=== PATIENT | male | born 1960 | race American Indian/Alaskan Native ===

== ENCOUNTER 2016-11-14 09:12 | Emergency (ER) | payer MEDICAID ==
--- NOTE | 2016-11-14 10:07 | XRay Report ---
LEFT ANKLE RADIOGRAPHS INDICATION: Left ankle injury, pain. COMPARISON: None similar. FINDINGS: AP and lateral left ankle radiographs demonstrate distal fibular fracture with cortical offset of approximately 3 mm, extending to distal tibiofibular articulation. Subtle medial subluxation of the tibia relative to the talus not entirely excluded. Malleoli and talar dome grossly intact. Diffuse overlying soft tissue swelling. Demineralized bones. Mild degenerative calcaneal and midfoot spurring also seen. CONCLUSION: Left distal fibular mildly displaced acute fracture suspected involving the distal tibiofibular articulation with soft tissue swelling and few other findings, including degenerative changes, as above. Please correlate. Thank you for the opportunity to participate in this patient's care.
[2016-11-14] MEDS ORDERED: DILAUDID IV ONE (10:43)
[2016-11-14] MEDS ORDERED: APRESOLINE IV ONE (10:43)
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
[2016-11-14 11:24] LABS: Anion Gap 16 mmol/L; Blood Urea Nitrogen 10 mg/dL (9-20); Carbon Dioxide 28 mmol/L (22-30); Chloride 97.7 mmol/L (98-107); Glucose 111 mg/dL (75-100); Potassium 4.1 mmol/L (3.6-5.0); Sodium 138 mmol/L (137-145)
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
[2016-11-14 14:32] VITALS: BP 155/76
== END 2016-11-14 14:32 | disposition home or self-care (01) ==
LOC: ED 09:12
DX: S82.402A Unspecified fracture of shaft of left fibula, initial encounter for closed fracture (principal); Y04.8XXA Assault by other bodily force, initial encounter; Y93.89 Activity, other specified; Y92.89 Other specified places as the place of occurrence of the external cause; Y99.8 Other external cause status; I10 Essential (primary) hypertension; F17.200 Nicotine dependence, unspecified, uncomplicated
CPT/HCPCS: 29515; 36415; 70450; 73560; 73590; 73600; 80048; 82550; 96374; 96375; 99285; J0360; J1170

== ENCOUNTER 2018-04-22 16:31 | Emergency (ER) | payer MEDICARE | END 2018-04-22 16:32 | disposition left against medical advice (07) | LOC: ED 16:31 | DX: R03.0 Elevated blood-pressure reading, without diagnosis of hypertension (principal); Z53.21 Procedure and treatment not carried out due to patient leaving prior to being seen by health care provider ==

== ENCOUNTER 2018-04-24 00:01 | Inpatient (IN) | payer MEDICARE ==
[2018-04-24 01:56] LABS: Basophils % (Auto) 0.5 % (0.0-1.8); Eosinophils % (Auto) 0.8 % (0.0-4.3); Hematocrit 50.4 % (35.5-45.6); Hemoglobin 17.7 gm/dl (11.8-15.2); Lymphocytes # (Auto) 1.5 K/mm3 (1.2-5.4); Lymphocytes % (Auto) 31.8 % (13.4-35.0); Mean Corpuscular HGB Conc 35 % (32-34); Mean Corpuscular Hemoglobin 34 pg (28-32); Mean Corpuscular Volume 97 fl (84-94); Monocytes # (Auto) 0.6 K/mm3 (0.0-0.8); Monocytes % (Auto) 11.6 % (0.0-7.3); Platelet Count 192 K/mm3 (140-440); Red Blood Count 5.19 M/mm3 (3.65-5.03)
[2018-04-24 02:09] LABS: INR 0.95 (0.87-1.13)
[2018-04-24 02:10] LABS: Partial Thromboplastin Time 30.8 Sec. (24.2-36.6)
[2018-04-24 02:15] LABS: Alanine Aminotransferase 46 units/L (7-56); Albumin 4.6 g/dL (3.9-5); BUN/Creatinine Ratio 10; Blood Urea Nitrogen 8 mg/dL (9-20); Calcium 9.1 mg/dL (8.4-10.2); Hemolysis Index 2
--- NOTE | 2018-04-24 02:33 | XRay Report ---
FINAL REPORT PROCEDURE: XR CHEST 1V AP TECHNIQUE: Chest radiograph anteroposterior view. CPT 08392 HISTORY: hypertension COMPARISON: No prior studies are available for comparison. FINDINGS: Heart: Normal. Mediastinum/Vessels: Normal. Lungs/Pleural space: Normal. Bony thorax: No acute osseous abnormality. Life support devices: None. IMPRESSION: No acute cardiopulmonary abnormality.
--- NOTE | 2018-04-24 02:35 | Cat Scan Report ---
FINAL REPORT PROCEDURE: CT HEAD/BRAIN WO CON TECHNIQUE: Computerized tomography of the head was performed without contrast material. HISTORY: Alterted Mental Status COMPARISON: No prior studies are available for comparison. FINDINGS: Skull and scalp: Normal. Paranasal sinuses: Normal. Ventricles and subarachnoid spaces: There is central and cortical atrophy somewhat advanced for the patient's age.. Cerebrum: No evidence of hemorrhage, acute infarction or mass. 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 There is chronic periventricular deep white matter ischemic gliosis. Cerebellum and brainstem: No evidence of hemorrhage, acute infarction or mass. Vasculature: Normal. Comments: None. IMPRESSION: There are chronic involutional and ischemic changes. There is no hemorrhage, edema, mass, mass effect or midline shift.
--- NOTE | 2018-04-24 03:50 | Emergency Department Report ---
ED Altered Mental Status HPI - General Chief Complaint: Syncope Stated Complaint: POSSIBLE SYNCOPE Time Seen by Provider: 04/24/18 00:25 Source: patient, family, EMS Mode of arrival: Stretcher Limitations: No Limitations - History of Present Illness Initial Comments: Family reports that at approximately 1800 patient had a sudden onset episode of altered mental status associated with decreased responsiveness, bilateral UE shaking, and eyes rolling in the back of the head lasting approximately 1-2 minutes. Reports no symptoms in the ER. Patient does not remember episode. Patient denies hx seizure. Denies trauma. Reports alcohol today. Denies illicit drugs. reports patient was started on anti-hypertensives approximately 3 days ago by pain management - HCTZ, norvasc, carvedilol for BP management. Patient reports that he has been compliant with medications. MD Complaint: altered mental status, decreased responsiveness -: Last night Severity: moderate Consistency of Symptoms: waxing and waning (symptoms resolved after approximately 1-2 minutes at home) Context: change in medication, other (reports alcohol use) Associated Symptoms: diaphoresis, seizure. denies: chest pain, cough, fever/ chills, headaches, loss of appetite, nausea/vomiting, rash, shortness of breath , weakness, foul smelling urine, difficulty walking, diarrhea - Related Data Previous Rx's Medication Instructions Recorded Last Taken Type ALBUTEROL Inhaler [ProAir HFA 1 puff IH Q4H PRN #1 inha 10/15/13 Unknown Rx Inhaler] Omeprazole Magnesium [Prilosec Otc] 20 mg PO QDAY #30 tablet. 10/15/13 Unknown Rx HYDROcodone/APAP 5-325 [[place] 1 each PO Q6HR PRN #12 tablet 01/29/16 Unknown Rx 5/325] Ketorolac [Toradol] 10 mg PO Q6H PRN #20 tablet 11/14/16 Unknown Rx Lisinopril [Zestril TAB] 10 mg PO QDAY #30 tablet 11/14/16 Unknown Rx hydrALAZINE [Apresoline TAB] 25 mg PO Q8H #90 tab 11/14/16 Unknown Rx oxyCODONE [Roxicodone] 5 mg PO Q6HR PRN #15 tablet 11/14/16 Unknown Rx Allergies Allergy/AdvReac Type Severity Reaction Status Date / Time No Known Allergies Allergy Verified 10/15/13 00:19 ED Review of Systems ROS: Stated complaint: POSSIBLE SYNCOPE Other details as noted in HPI Other: GENERAL: No weight change, fatigue, weakness, fever, chills, or night sweats SKIN: No changes in skin or hair, no itching, no rashes, no jaundice HEAD: No trauma, headache, or visual changes EYES: No blurriness, tearing, itching, acute visual loss, conjunctival discoloration, or scleral icterus EARS: No hearing loss, tinnitus, vertigo, or earache NOSE: No rhinorrhea, stuffiness, sneezing, itching, or epistaxis MOUTH: No bleeding gums, hoarseness, sore throat, or swelling CARDIAC: No new murmur, chest pain, palpitations, dyspnea on exertion, orthopnea , PND, or edema RESPIRATORY: No shortness of breath, wheeze, cough, sputum production, hemoptysis, pneumonia, asthma, bronchitis, or emphysema GI: No change in appetite, nausea, vomiting, dysphagia, change in bowel frequency, diarrhea, constipation, bleeding, hematemesis, melena, hematochezia, or abdominal pain URINARY: No frequency, urgency, polyuria, dysuria, hematuria, or incontinence MUSCULOSKELETAL: No muscle weakness, joint stiffness, decrease in range of motion, redness, swelling NEUROLOGIC: Altered mental status. No loss of sensation, numbness, tingling, tremors, weakness, paralysis, seizures HEMATOLOGIC: No anemia, easy bruising, bleeding, petechiae, or purpura ENDOCRINE: No hot or cold intolerance, sweating, polyuria, polydipsia or, polyphagia no thyroid problems ED Past Medical Hx - Past Medical History Previous Medical History?: Yes Hx Hypertension: Yes (no meds) Hx Congestive Heart Failure: No Hx Diabetes: No Hx Asthma: No Hx COPD: No - Surgical History Past Surgical History?: No - Social History Smoking Status: Current Every Day Smoker Substance Use Type: Alcohol - Medications Home Medications: Home Medications Medication Instructions Recorded Confirmed Last Taken Type ALBUTEROL Inhaler [ProAir HFA 1 puff IH Q4H PRN #1 inha 10/15/13 03/14/14 Unknown Rx Inhaler] Omeprazole Magnesium [Prilosec Otc] 20 mg PO QDAY #30 tablet. 10/15/13 Unknown Rx HYDROcodone/APAP 5-325 [[place] 1 each PO Q6HR PRN #12 tablet 01/29/16 Unknown Rx 5/325] Ketorolac [Toradol] 10 mg PO Q6H PRN #20 tablet 11/14/16 Unknown Rx Lisinopril [Zestril TAB] 10 mg PO QDAY #30 tablet 11/14/16 Unknown Rx hydrALAZINE [Apresoline TAB] 25 mg PO Q8H #90 tab 11/14/16 Unknown Rx oxyCODONE [Roxicodone] 5 mg PO Q6HR PRN #15 tablet 11/14/16 Unknown Rx ED Physical Exam - General Limitations: No Limitations - Other Other exam information: GENERAL: Patient in no acute distress HEAD: Normocephalic, atraumatic EYES: PERRLA, EOM intact, no scleral icterus, visual marroquin and acuity wnl NOSE: No tenderness, discharge, sinus tenderness MOUTH: No erythema, bleeding, exudate HEART: Regular rate and rhythm, no murmur, S1-S2 are auscultated, pulses are symmetric LUNGS: bilateral breath sounds. No wheezing, rales, rhonchi ABDOMEN: Normal bowel sounds, no tenderness, no rebound, no guarding, no masses , no CVA tenderness MUSCULOSKELETAL: Normal joint range of motion, no redness, no swelling, no tenderness NEUROLOGIC: NIHSS on 0, GCS 15, Alert and Oriented x3, Cranial nerves intact, normal sensation, normal strength, normal gait, no cerebellar deficit PSYCHIATRIC: No homicidal or suicidal ideation, no anxiety, no depression, no hallucinations SKIN: Skin is warm and dry, no wounds, no rashes - Assessment Assessment Interval: Baseline - Level of Consciousness 1a. Level of Consciousness: alert - LOC Questions 1b. LOC Questions: answers correctly - LOC Command 1c. LOC Commands: performs tasks correctly - Best Gaze 2. Best Gaze: normal - Visual 3. Visual: no visual loss - Facial Palsy 4. Facial Palsy: normal symmetrical movement - Motor Arm 5b. Motor Arm Right: no drift 5a. Motor Arm Left: no drift - Motor Leg 6a. Motor Leg Left: no drift 6b. Motor Leg Right: no drift - Limb Ataxia 7. Limb Ataxia: absent - Sensory 8. Sensory: normal - Best Language 9. Best Language: no aphasia - Dysarthria 10. Dysarthria: normal - Extinction and Inattention 11. Extinction/Inattention: no abnormality - Scoring Total Score: 0 Stroke Severity: No Stroke Symptoms ED Course Vital Signs 04/24/18 00:09 Temperature 98.1 F Pulse Rate 77 Respiratory 18 Rate Blood Pressure 131/87 O2 Sat by Pulse 100 Oximetry - Lab Data Result diagrams: 04/24/18 01:41 04/24/18 01:41 Lab Results 04/24/18 04/24/18 04/24/18 Range/Units 01:41 01:41 01:41 WBC 4.8 (4.5-11.0) K/mm3 RBC 5.19 H (3.65-5.03) M/mm3 Hgb 17.7 H (11.8-15.2) gm/dl Hct 50.4 H (35.5-45.6) % MCV 97 H (84-94) fl MCH 34 H (28-32) pg MCHC 35 H (32-34) % RDW 13.0 L (13.2-15.2) % Plt Count 192 (140-440) K/mm3 Lymph % (Auto) 31.8 (13.4-35.0) % [place] % (Auto) 11.6 H (0.0-7.3) % Eos % (Auto) 0.8 (0.0-4.3) % Baso % (Auto) 0.5 (0.0-1.8) % Lymph # 1.5 (1.2-5.4) K/mm3 [place] # 0.6 (0.0-0.8) K/mm3 Eos # 0.0 (0.0-0.4) K/mm3 Baso # 0.0 (0.0-0.1) K/mm3 Seg Neutrophils % 55.3 (40.0-70.0) % Seg Neutrophils # 2.7 (1.8-7.7) K/mm3 PT (12.2-14.9) Sec. INR (0.87-1.13) APTT (24.2-36.6) Sec. Sodium (137-145) mmol/L Potassium (3.6-5.0) mmol/L Chloride (98-107) mmol/L Carbon Dioxide (22-30) mmol/L Anion Gap mmol/L BUN (9-20) mg/dL Creatinine (0.8-1.5) mg/dL Estimated GFR ml/min BUN/Creatinine Ratio % Glucose (75-100) mg/dL Calcium (8.4-10.2) mg/dL Total Bilirubin (0.1-1.2) mg/dL AST (5-40) units/L ALT (7-56) units/L Alkaline Phosphatase (35-129) units/L Total Creatine Kinase (55-170) units/L Troponin T < 0.010 (0.00-0.029) ng/mL NT-Pro-B Natriuret Pep (0-900) pg/mL Total Protein (6.3-8.2) g/dL Albumin (3.9-5) g/dL Albumin/Globulin Ratio % Plasma/Serum Alcohol < 0.01 (0-0.07) % 04/24/18 04/24/18 Range/Units 01:41 01:41 WBC (4.5-11.0) K/mm3 RBC (3.65-5.03) M/mm3 Hgb (11.8-15.2) gm/dl Hct (35.5-45.6) % MCV (84-94) fl MCH (28-32) pg MCHC (32-34) % RDW (13.2-15.2) % Plt Count (140-440) K/mm3 Lymph % (Auto) (13.4-35.0) % [place] % (Auto) (0.0-7.3) % Eos % (Auto) (0.0-4.3) % Baso % (Auto) (0.0-1.8) % Lymph # (1.2-5.4) K/mm3 [place] # (0.0-0.8) K/mm3 Eos # (0.0-0.4) K/mm3 Baso # (0.0-0.1) K/mm3 Seg Neutrophils % (40.0-70.0) % Seg Neutrophils # (1.8-7.7) K/mm3 PT 13.2 (12.2-14.9) Sec. INR 0.95 (0.87-1.13) APTT 30.8 (24.2-36.6) Sec. Sodium 120 L (137-145) mmol/L Potassium 2.8 L* (3.6-5.0) mmol/L Chloride 78.7 L (98-107) mmol/L Carbon Dioxide 28 (22-30) mmol/L Anion Gap 16 mmol/L BUN 8 L (9-20) mg/dL Creatinine 0.8 (0.8-1.5) mg/dL Estimated GFR > 60 ml/min BUN/Creatinine Ratio 10 % Glucose 119 H (75-100) mg/dL Calcium 9.1 (8.4-10.2) mg/dL Total Bilirubin 1.60 H (0.1-1.2) mg/dL AST 57 H (5-40) units/L ALT 46 (7-56) units/L Alkaline Phosphatase 58 (35-129) units/L Total Creatine Kinase 770 H (55-170) units/L Troponin T (0.00-0.029) ng/mL NT-Pro-B Natriuret Pep 88.31 (0-900) pg/mL Total Protein 7.6 (6.3-8.2) g/dL Albumin 4.6 (3.9-5) g/dL Albumin/Globulin Ratio 1.5 % Plasma/Serum Alcohol (0-0.07) % Interpretation: no acute changes - Radiology Data Radiology results: report reviewed - Medical Decision Making Patient comfortable. Updated with results. Plan admit for further evaluation. Hospitalists accepts admission. Critical care attestation.: If time is entered above; I have spent that time in minutes in the direct care of this critically ill patient, excluding procedure time. ED Disposition Clinical Impression: Hyponatremia, Hypokalemia Altered mental status Qualifiers: Altered mental status type: unspecified Qualified Code(s): R41.82 - Altered mental status, unspecified Disposition: DC-09 OP ADMIT IP TO THIS HOSP Is pt being admited?: Yes Condition: Stable Referrals: JACINDA LIZARRAGA MD [Primary Care Provider] - 3-5 Days
[2018-04-24] MEDS: NS/KCL 20MEQ 20 MEQ/1,000 ML BAG IV SCH (05:09)
[2018-04-24] MEDS ORDERED: K-DUR PO ONE (05:35)
[2018-04-24] MEDS ORDERED: ATIVAN IV PRN (05:38)
[2018-04-24] MEDS ORDERED: VITAMIN B-1 100 MG, FOLVITE 1 MG, INFUVITE 10 ML in NACL 0.9% 1000 ML 1,000 ML IV ONE (05:38)
[2018-04-24] MEDS ORDERED: ZOFRAN IV PRN (05:39)
[2018-04-24] MEDS ORDERED: TYLENOL PO PRN (05:41)
[2018-04-24] MEDS ORDERED: PROAIR IH PRN (05:50)
[2018-04-24] MEDS ORDERED: ROXICODONE PO PRN (05:50)
[2018-04-24] MEDS ORDERED: NORCO 5/325 PO PRN ×2 (05:50→12:00)
[2018-04-24] MEDS ORDERED: TORADOL PO PRN (05:50)
[2018-04-24] MEDS ORDERED: PROVENTIL IH PRN (05:59)
[2018-04-24 06:22] LABS: Bilirubin,Urine NEG (Negative); Blood,Urine NEG (Negative); Color,Urine Colorless (Yellow); Protein,Urine <15 mg/dL mg/dL (Negative); Urobilinogen,Urine < 2.0 mg/dL (<2.0); WBC,Urine < 1.0 /HPF (0.0-6.0)
[2018-04-24 06:25] LABS: RBC,Urine < 1.0 /HPF (0.0-6.0)
[2018-04-24] MEDS: APRESOLINE PO SCH ×2 (06:28→15:44)
[2018-04-24 06:30] LABS: Amphetamine Screen,Urine PRESUMPTIVE NEGATIVE; Benzodiazepines Screen,Urine PRESUMPTIVE NEGATIVE; Cocaine Screen,Urine PRESUMPTIVE NEGATIVE; Methadone Screen,Urine PRESUMPTIVE NEGATIVE; Opiate Screen,Urine PRESUMPTIVE NEGATIVE
[2018-04-24 06:45] LABS: Cannabinoid Screen,Urine PRESUMPTIVE POSITIVE
--- NOTE | 2018-04-24 06:50 | History and Physical Report ---
CHIEF COMPLAINT: Syncopal attack. Other complaint include change in mental status. HISTORY OF PRESENTING ILLNESS: The patient is a 57-year-old male who was noted to have altered mental status at home associated with decreased responsiveness. The patient was noted also by family to have some jerky movement and shaking with eyes rolling backwards, the incident lasted for about 1-2 minute and the patient was then reported as possibly having a syncopal attack. The patient's symptoms did not manifest while in the Emergency Room. The patient does not remember having these symptoms. The patient denies history of seizure and denies history of trauma and admitted to drinking alcohol on a regular basis with the last drink being yesterday 04/23/2018. There is no history of chest pain, no history of shortness of breath. No history of nausea and vomiting. PAST MEDICAL HISTORY: Pertinent for hypertension. The patient is not on any medication. Also the patient has past history of alcohol abuse. PAST SURGICAL HISTORY: Unremarkable. FAMILY HISTORY: Family history is noncontributory. SOCIAL HISTORY: The patient drinks alcohol regularly, smokes cigarettes and denies use of illicit drug. MEDICATIONS: The patient is on albuterol inhaler 1 puff every 4 hours as needed for shortness of breath, omeprazole 20 mg by mouth daily, [place] 5/325 mg 1 by mouth every 6 hours as needed for pain. Also the patient is on Toradol 10 mg by mouth every 6 hours as needed for pain, and lisinopril 10 mg by mouth daily as well as hydralazine 25 mg by mouth every 8 hours and Roxicodone 5 mg by mouth every 6 hours as needed for pain. ALLERGIES: There are no known drug allergies. REVIEW OF SYSTEMS: CONSTITUTIONAL: There is no fever, no chills, no diaphoresis. HEENT: There is no headache or sore throat. CARDIOVASCULAR SYSTEM: There is no chest pain or orthopnea. RESPIRATORY SYSTEM: There is no shortness of breath or cough. GASTROINTESTINAL SYSTEM: There is no nausea, no vomiting, no abdominal pain, diarrhea or constipation. NEUROLOGICAL SYSTEM: Change in mental status noted. Shaking and jerky movement of the body with eyes rolling back noted. MUSCULOSKELETAL SYSTEM: There is no joint pain or swelling. DERMATOLOGICAL SYSTEM: There is no skin rash or itching. GENITOURINARY SYSTEM: There is no dysuria, hematuria or flank pain. Rest of system review is normal. PHYSICAL EXAMINATION: GENERAL: At the time of exam, the patient was found to be alert, oriented x 3 and not in acute distress. VITAL SIGNS: That was first recorded when the patient came to the Emergency Room shows temperature of 98.1 degrees Fahrenheit, pulse 77, respiration 18, blood pressure 131/87, O2 sat of 100% on room air. HEENT: Shows pupils to be equal, round, reactive to light and accommodating. Extraocular muscles are intact. NECK: Neck is supple with no JVD or carotid bruits. CARDIOVASCULAR SYSTEM: Shows normal first and second heart sounds with no gallops or murmur. RESPIRATORY SYSTEM: Show good air entry on both sides of the lungs with no abnormal breath sounds. GASTROINTESTINAL SYSTEM: Show abdomen to be full, soft, nontender with no organomegaly or rigidity. NEUROLOGICAL: Shows no focal deficit. MUSCULOSKELETAL SYSTEM: Show no joint swelling or tenderness. DERMATOLOGICAL SYSTEM: Show no skin rash. GENITOURINARY SYSTEM: Showing no costovertebral angle tenderness. PERTINENT LABORATORY AND IMAGING STUDIES: The patient has CBC done with normal white count, elevated hemoglobin of 17.7 with elevated hematocrit of 50.4 and high MCV of 97. CBC differential shows elevated monocyte count of 11.6% with unremarkable coagulation studies. The patient's chemistry showed low sodium of 120 with low potassium of 2.8 and low chloride of 78.7 with the patient's other chemistry showing elevated bilirubin of 1.6 with high AST of 57 and normal ALT of 46 consistent with the patient's alcohol abuse. The patient's total CPK is high with a value of 770 and troponin level is unremarkable. The patient's alcohol level is less than 0.01. The patient has CT of the head without contrast done and this shows chronic involutional and ischemic changes with no hemorrhage, edema, mass effect or midline shift seen. The patient also has chest x-ray done that shows no acute cardiopulmonary lesion. DIAGNOSES: 1. Altered mental status. 2. Electrolyte imbalance with hyponatremia and hypokalemia. PLAN OF ACTION: 1. The patient will be admitted to telemetry. 2. The patient will be on p.o. potassium chloride 40 mEq to be given once. 3. The patient will be on IV banana bag to be given one time at the rate of 250 mL an hour and the patient will continue IV normal saline with 20 mEq of potassium in 1 liter of normal saline started in the Emergency Room. 4. The patient will be on IV Zofran 4 mg every 8 hours for nausea and vomiting. 5. The patient will be on Tylenol 650 mg by mouth every 4 hours for fever and headache. Heparin 5000 units subQ q. 12 hours for DVT prophylaxis. 6. The patient will be on IV Ativan 1 mg every 4 hours as needed for seizure activity or agitation from alcohol withdrawal. 7. The patient will be on his home medications as shown in the medication reconciliation section. 8. The patient's diet will be 2 g sodium diet. JOB# [id number] OCN/NTS
[2018-04-24 07:28] LABS: BUN/Creatinine Ratio 14; Blood Urea Nitrogen 7 mg/dL (9-20); Calcium 8.7 mg/dL (8.4-10.2); Hemolysis Index 297
[2018-04-24] MEDS ORDERED: NON-FORMULARY (Omeprazole Magnesium [Prilosec Otc] 20 MG) PO SCH (10:00)
[2018-04-24] MEDS: HEPARIN SUB-Q SCH (10:42)
[2018-04-24] MEDS: ZESTRIL PO SCH (10:42)
[2018-04-24] MEDS: PROTONIX PO SCH (10:42)
--- NOTE | 2018-04-24 14:36 | Progress Note ---
Assessment and Plan - Encephalopathy - Electrolytes imbalance with hyponatremia and hypokalemia - Alcohol use disorder - Abnormal liver enzymes - Moderately use disorder Plan CT scan of the head was unremarkable. Replete electrolyte imbalalce Subjective Date of service: 04/24/18 Principal diagnosis: metabolic encephalopathy from alcohol ingestion Interval history: Patient seen and examined Objective - Exam Narrative Exam: Constitutional: Well-nourished well-developed. In no distress Head: Normocephalic atraumatic Eyes: Pupils are equal round and reactive to light Nose: No enlarged turbinates, no septal deviation. Mouth: Moist mucous membranes. Neck: Supple no thyromegaly. No bruit. No JVD Heart: Regular rate and rhythm, S1-S2 abnormal. No rubs murmurs or gallop Lungs: Clear to auscultation bilaterally no rales or rhonchi Abdomen: Soft, nontender. Bowel sound are present. Extremities: No edema no cyanosis and no clubbing. Neuro: Alert oriented Oriented x3. No focal sensory or motor deficit. Skin: No rashes no hyperemic spots Psychiatry: Euthymic. Calm. - Constitutional Vitals: Vital Signs - 12hr 04/24/18 04/24/18 04/24/18 03:51 04:01 04:15 Temperature Pulse Rate 75 75 Respiratory 17 18 Rate Blood Pressure 142/87 142/87 142/87 Blood Pressure [Right] O2 Sat by Pulse 98 94 95 Oximetry 04/24/18 04/24/18 04/24/18 04:31 04:45 05:01 Temperature Pulse Rate 79 77 76 Respiratory 20 18 18 Rate Blood Pressure 142/87 142/87 142/87 Blood Pressure [Right] O2 Sat by Pulse Oximetry 04/24/18 04/24/18 04/24/18 05:04 05:11 06:12 Temperature Pulse Rate 98 H 74 Respiratory 20 25 H Rate Blood Pressure 142/87 Blood Pressure [Right] O2 Sat by Pulse 100 Oximetry 04/24/18 04/24/18 04/24/18 06:28 06:35 07:27 Temperature 98.0 F Pulse Rate 90 72 80 Respiratory 20 20 Rate Blood Pressure 138/74 141/92 Blood Pressure 142/87 [Right] O2 Sat by Pulse 98 95 Oximetry 04/24/18 12:39 Temperature 99.0 F Pulse Rate 86 Respiratory 1 L Rate Blood Pressure 137/90 Blood Pressure [Right] O2 Sat by Pulse 97 Oximetry - Labs CBC & Chem 7: 04/24/18 01:41 04/24/18 06:26 Labs: Abnormal lab results 04/24/18 04/24/18 04/24/18 Range/Units 01:41 01:41 05:32 RBC 5.19 H (3.65-5.03) M/mm3 Hgb 17.7 H (11.8-15.2) gm/dl Hct 50.4 H (35.5-45.6) % MCV 97 H (84-94) fl MCH 34 H (28-32) pg MCHC 35 H (32-34) % RDW 13.0 L (13.2-15.2) % [place] % (Auto) 11.6 H (0.0-7.3) % Sodium 120 L (137-145) mmol/L Potassium 2.8 L* (3.6-5.0) mmol/L Chloride 78.7 L (98-107) mmol/L BUN 8 L (9-20) mg/dL Creatinine (0.8-1.5) mg/dL Glucose 119 H (75-100) mg/dL Total Bilirubin 1.60 H (0.1-1.2) mg/dL AST 57 H (5-40) units/L Total Creatine Kinase 770 H (55-170) units/L Ur Specific [place] 1.001 L (1.003-1.030) 04/24/18 Range/Units 06:26 RBC (3.65-5.03) M/mm3 Hgb (11.8-15.2) gm/dl Hct (35.5-45.6) % MCV (84-94) fl MCH (28-32) pg MCHC (32-34) % RDW (13.2-15.2) % [place] % (Auto) (0.0-7.3) % Sodium 129 L D (137-145) mmol/L Potassium (3.6-5.0) mmol/L Chloride 88.0 L (98-107) mmol/L BUN 7 L (9-20) mg/dL Creatinine 0.5 L (0.8-1.5) mg/dL Glucose 111 H (75-100) mg/dL Total Bilirubin (0.1-1.2) mg/dL AST (5-40) units/L Total Creatine Kinase (55-170) units/L Ur Specific [place] (1.003-1.030)
[2018-04-25] MEDS: APRESOLINE PO SCH ×6 (00:33→22:26)
[2018-04-25] MEDS: HEPARIN SUB-Q SCH ×3 (00:35→22:25)
[2018-04-25] MEDS: PROTONIX PO SCH (10:16)
[2018-04-25] MEDS: ZESTRIL PO SCH ×3 (10:17→22:24)
[2018-04-25] MEDS: NS/KCL 20MEQ 20 MEQ/1,000 ML BAG IV SCH ×2 (10:31→22:27)
[2018-04-25] MEDS ORDERED: APRESOLINE IV PRN (13:13)
--- NOTE | 2018-04-25 13:33 | Progress Note ---
Assessment and Plan - Encephalopathy - Electrolytes imbalance with hyponatremia and hypokalemia - Alcohol use disorder - Abnormal liver enzymes - Hypertension - Moderately use disorder Plan CT scan of the head was unremarkable. Replete electrolyte imbalalce Optimize blood pressure control DVT prophylaxis with Lovenox Subjective Date of service: 04/25/18 Principal diagnosis: metabolic encephalopathy from alcohol ingestion Interval history: Patient seen and examined denies any chest pain or shortness of breath. No headache. Objective - Exam Narrative Exam: Constitutional: Well-nourished well-developed.In no distress Head: Normocephalic atraumatic Eyes: Pupils are equal round and reactive to light Nose: No enlarged turbinates, no septal deviation. Mouth: Moist mucous membranes. Neck: Supple no thyromegaly. No bruit. No JVD Heart: Regular rate and rhythm, S1-S2 abnormal. No rubs murmurs or gallop Lungs: Clear to auscultation bilaterally no rales or rhonchi Abdomen: Soft, nontender. Bowel sound are present. Extremities: No edema no cyanosis and no clubbing. Neuro: Alert oriented Oriented x3. No focal sensory or motor deficit. Skin: No rashes no hyperemic spots Psychiatry: Euthymic. Calm. - Constitutional Vitals: Vital Signs - 12hr 04/25/18 04/25/18 04/25/18 02:03 07:10 07:13 Temperature 98.5 F Pulse Rate 82 82 82 Respiratory 18 Rate Blood Pressure 142/87 Blood Pressure 142/87 [Right] O2 Sat by Pulse 96 Oximetry 04/25/18 08:36 Temperature 99.0 F Pulse Rate 78 Respiratory 20 Rate Blood Pressure 144/87 Blood Pressure [Right] O2 Sat by Pulse 96 Oximetry - Labs CBC & Chem 7: 04/24/18 01:41 04/24/18 06:26
[2018-04-25 15:46] LABS: BUN/Creatinine Ratio 9; Blood Urea Nitrogen 8 mg/dL (9-20); Calcium 8.9 mg/dL (8.4-10.2); Hemolysis Index 1
[2018-04-25] MEDS: NORVASC PO SCH (17:59)
[2018-04-25] MEDS: CATAPRES PO SCH ×2 (18:00→22:25)
[2018-04-25] MEDS: NORMODYNE PO SCH ×2 (20:23→22:25)
[2018-04-26] MEDS: CATAPRES PO SCH ×2 (05:26→14:55)
[2018-04-26] MEDS: APRESOLINE PO SCH ×2 (05:27→14:55)
[2018-04-26 05:39] LABS: Hematocrit 45.4 % (35.5-45.6); Hemoglobin 15.3 gm/dl (11.8-15.2); Mean Corpuscular HGB Conc 34 % (32-34); Mean Corpuscular Hemoglobin 33 pg (28-32); Mean Corpuscular Volume 99 fl (84-94); Platelet Count 152 K/mm3 (140-440); Red Blood Count 4.58 M/mm3 (3.65-5.03); Red Cell Distribution Width 13.5 % (13.2-15.2)
[2018-04-26 06:05] LABS: Alanine Aminotransferase 54 units/L (7-56); Albumin 4.1 g/dL (3.9-5); BUN/Creatinine Ratio 8; Blood Urea Nitrogen 6 mg/dL (9-20); Hemolysis Index 2
[2018-04-26 06:34] LABS: Basophils % (Manual) 0 % (0.0-1.8); Platelet Estimate Consistent w Auto; Total Cells Counted 100
[2018-04-26] MEDS: NORVASC PO SCH (10:47)
[2018-04-26] MEDS: NORMODYNE PO SCH (10:47)
[2018-04-26] MEDS: HEPARIN SUB-Q SCH (10:47)
[2018-04-26] MEDS: PROTONIX PO SCH (10:48)
[2018-04-26] MEDS: ZESTRIL PO SCH (10:48)
--- NOTE | 2018-04-26 13:45 | Progress Note ---
Subjective Date of service: 04/26/18 Principal diagnosis: metabolic encephalopathy from alcohol ingestion Objective - Constitutional Vitals: Vital Signs - 12hr 04/26/18 04/26/18 04/26/18 05:01 05:02 08:27 Temperature 98.2 F Pulse Rate 68 71 Respiratory 18 Rate Blood Pressure 184/102 173/95 180/102 O2 Sat by Pulse 99 98 Oximetry - Labs CBC & Chem 7: 04/26/18 05:26 04/26/18 05:26 Labs: Abnormal lab results 04/25/18 04/26/18 04/26/18 Range/Units 14:44 05:26 05:26 Hgb 15.3 H (11.8-15.2) gm/dl MCV 99 H (84-94) fl MCH 33 H (28-32) pg Lymphocytes % (Manual) 45.0 H (13.4-35.0) % Monocytes % (Manual) 11.0 H (0.0-7.3) % Sodium 136 L (137-145) mmol/L Chloride 95.9 L (98-107) mmol/L BUN 8 L 6 L (9-20) mg/dL AST 76 H (5-40) units/L
[2018-04-26 14:36] VITALS: BP 181/101
== END 2018-04-26 16:50 | disposition left against medical advice (07) | DRG 640 ==
LOC: ED 00:01 → 4A 03:27
PROVIDERS: ADMIT Emergency Medicine; ATTEND Emergency Medicine
DX: E87.1 Hypo-osmolality and hyponatremia (principal); G93.41 Metabolic encephalopathy; F10.988 Alcohol use, unspecified with other alcohol-induced disorder; E87.6 Hypokalemia; I10 Essential (primary) hypertension; F17.210 Nicotine dependence, cigarettes, uncomplicated; Y90.0 Blood alcohol level of less than 20 mg/100 ml; Z53.21 Procedure and treatment not carried out due to patient leaving prior to being seen by health care provider; Z79.51 Long term (current) use of inhaled steroids
CPT/HCPCS: 36415; 70450; 71045; 80048; 80053; 80307; 80320; 81001; 82550; 83880; 84484; 85007; 85025; 85610; 85730; 93005; 93010; G0480; J0360; J1644; J3411; J7030

== ENCOUNTER 2020-04-22 19:34 | Emergency (ER) | payer MEDICARE ==
[2020-04-22] MEDS ORDERED: SODIUM CHLORIDE 0.9% 1000 ML 1,000 ML IV ONE (20:18)
[2020-04-22] MEDS ORDERED: LORazepam 2 MG/ML VIAL IV ONE (20:18)
[2020-04-22] MEDS ORDERED: LORazepam 2 MG/ML VIAL IV PRN ×3 (20:33)
[2020-04-22] MEDS ORDERED: THIAMINE 100 MG, FOLIC ACID 1 MG, MULTIPLE VITAMIN INJ, ADULT 10 ML in SODIUM CHLORIDE ... IV ONE (20:34)
[2020-04-22] MEDS ORDERED: MAGNESIUM SULFATE 2 GM/50 ML BAG IV ONE (20:35)
--- NOTE | 2020-04-22 20:42 | Emergency Department Report ---
HPI - General Time Seen by Provider: 04/22/20 20:09 - HPI HPI: Room 3 The patient is a 59-year-old male present with a chief complaint of diaphoresis. Patient states he has been sweating for the past 2 hours. Patient denies chest pain or shortness of breath. Patient admits to consuming a sixpack of beer daily and states he only consumed 1 beer this morning ED Past Medical Hx - Past Medical History Hx Hypertension: Yes - Surgical History Past Surgical History?: No - Family History Family history: no significant - Social History Smoking Status: Current Every Day Smoker (1 pack/day) Substance Use Type: None (Denies illicit drug use), Alcohol (Daily) - Medications Home Medications: Home Medications Medication Instructions Recorded Confirmed Last Taken Type Albuterol Mdi (or & Nicu Only) 1 puff IH Q4H PRN #1 inha 10/15/13 04/25/18 Unknown Rx [ProAir HFA Inhaler] Omeprazole Magnesium [Prilosec Otc] 20 mg PO QDAY #30 tablet. 10/15/13 04/25/18 Unknown Rx HYDROcodone/APAP 5-325 [Damar 1 each PO Q6HR PRN #12 tablet 01/29/16 04/25/18 Unknown Rx 5/325] Ketorolac [Toradol] 10 mg PO Q6H PRN #20 tablet 11/14/16 04/25/18 Unknown Rx lisinopriL [Zestril TAB] 10 mg PO QDAY #30 tablet 11/14/16 04/25/18 Unknown Rx oxyCODONE [Roxicodone] 5 mg PO Q6HR PRN #15 tablet 11/14/16 04/25/18 Unknown Rx hydrALAZINE [Apresoline TAB] 25 mg PO Q8H #90 tab 04/23/20 Unknown Rx ED Review of Systems ROS: Stated complaint: HYPERTENSION Other details as noted in HPI Constitutional: diaphoresis Respiratory: denies: shortness of breath Cardiovascular: denies: chest pain Physical Exam - Physical Exam Physical Exam: GENERAL: The patient is well-developed well-nourished male lying on stretcher appearing diaphoretic. [] HEENT: Normocephalic. Atraumatic. Extraocular motions are intact. Patient has moist mucous membranes. NECK: Supple. Trachea midline CHEST/LUNGS: Clear to auscultation. There is no respiratory distress noted. HEART/CARDIOVASCULAR: Regular. There is tachycardia (heart rate approximately 140). There is no gallop rub or murmur. ABDOMEN: Abdomen is soft, nontender. Patient has normal bowel sounds. There is no abdominal distention. SKIN: There is no rash. There is no edema. There is no diaphoresis. NEURO: The patient is awake, alert, and oriented. The patient is cooperative. The patient has no focal neurologic deficits. The patient has normal speech MUSCULOSKELETAL: There is no evidence of acute injury. ED Course - Reevaluation(s) Reevaluation #1: 04/22/20 21:38 After Ativan patient's heart rate is normalized and patient is currently asymptomatic. Patient states his only complaint currently is he is hungry. Reevaluation #2: 04/23/20 00:06 Blood pressure improved to 145/94 heart rate 91. Patient remains asymptomatic and resting comfortably ED Medical Decision Making - Lab Data Result diagrams: 04/22/20 20:26 04/22/20 20:26 Laboratory Tests 04/22/20 04/22/20 04/22/20 20:26 20:26 20:26 WBC 5.6 RBC 5.02 Hgb 17.7 H Hct 51.1 H MCV 102 H MCH 35 H MCHC 35 H RDW 13.0 L Plt Count 241 Lymph % (Auto) 15.1 Wheeler % (Auto) 9.5 H Eos % (Auto) 0.0 Baso % (Auto) 0.8 Lymph # 0.8 L Wheeler # 0.5 Eos # 0.0 Baso # 0.0 Seg Neutrophils % 74.6 H Seg Neutrophils # 4.2 PT 13.4 INR 1.01 APTT 30.6 Sodium 136 L Potassium 4.6 Chloride 92.8 L Carbon Dioxide 27 Anion Gap 21 BUN 5 L Creatinine 0.7 L Estimated GFR > 60 BUN/Creatinine Ratio 7 Glucose 121 H Calcium 10.0 Total Bilirubin 1.00 AST 44 H ALT 36 Alkaline Phosphatase 61 Total Creatine Kinase 218 H CK-MB (CK-2) 3.6 CK-MB (CK-2) Rel Index 1.6 Troponin T < 0.010 Total Protein 8.3 H Albumin 5.1 H Albumin/Globulin Ratio 1.6 Lipase 21 - EKG Data -: EKG Interpreted by Nh EKG shows normal: sinus rhythm Rate: normal - EKG Data When compared to previous EKG there are: previous EKG unavailable Interpretation: other (No ischemic changes seen) - Differential Diagnosis Alcohol withdrawal, ACS Critical care attestation.: If time is entered above; I have spent that time in minutes in the direct care of this critically ill patient, excluding procedure time. ED Disposition Clinical Impression: Alcohol withdrawal, Hypertension Disposition: DC-01 TO HOME OR SELFCARE Is pt being admited?: No Does the pt Need Aspirin: No Condition: Stable Instructions: Hypertension (ED), Abuse of Alcohol (ED), At-Risk Alcohol Use (ED), Alcohol Withdrawal (ED) Additional Instructions: Return to the emergency department should you develop worsening symptoms, inability to tolerate food or liquids, high fever or any other concerns Prescriptions: hydrALAZINE [Apresoline TAB] 25 mg PO Q8H #90 tab Referrals: Hardeep Sauceda [facility] [Outside] - 3-5 Days Time of Disposition: 00:08
[2020-04-22 21:06] LABS: Basophils % (Auto) 0.8 % (0.0-1.8); Hematocrit 51.1 % (35.5-45.6); Hemoglobin 17.7 gm/dl (11.8-15.2); Lymphocytes # (Auto) 0.8 K/mm3 (1.2-5.4); Lymphocytes % (Auto) 15.1 % (13.4-35.0); Mean Corpuscular HGB Conc 35 % (32-34); Mean Corpuscular Volume 102 fl (84-94); Monocytes # (Auto) 0.5 K/mm3 (0.0-0.8); Monocytes % (Auto) 9.5 % (0.0-7.3); Platelet Count 241 K/mm3 (140-440); Red Blood Count 5.02 M/mm3 (3.65-5.03)
[2020-04-22 21:17] LABS: INR 1.01 (0.87-1.13)
[2020-04-22 21:18] LABS: Partial Thromboplastin Time 30.6 Sec. (24.2-36.6)
[2020-04-22 21:20] LABS: Alanine Aminotransferase 36 units/L (7-56); Albumin 5.1 g/dL (3.9-5); Blood Urea Nitrogen 5 mg/dL (9-20); Creatine Kinase MB 3.6 ng/mL (0.0-4.0); Hemolysis Index 100
[2020-04-22 21:21] LABS: BUN/Creatinine Ratio 7
[2020-04-22 21:30] LABS: Free T4 (Free Thyroxine) 0.96 ng/dL (0.76-1.46)
[2020-04-22] MEDS ORDERED: cloNIDine 0.2 MG TAB PO ONE (21:37)
[2020-04-23 01:02] VITALS: BP 138/84
== END 2020-04-23 01:40 | disposition home or self-care (01) ==
LOC: ED 19:34
DX: F10.239 Alcohol dependence with withdrawal, unspecified (principal); I10 Essential (primary) hypertension; F17.210 Nicotine dependence, cigarettes, uncomplicated; Z79.899 Other long term (current) drug therapy
CPT/HCPCS: 36415; 80053; 82550; 82553; 83690; 84439; 84443; 84484; 85025; 85610; 85730; 93005; 96361; 96365; 96367; 96375; 96376; 99284; J2060; J3411; J3475; J7030